=== PATIENT | male | born 1940 | race Caucasian/White ===

== ENCOUNTER → 2020-07-28 | Outpatient (CLI) | payer BC ==
--- NOTE | 2020-07-28 16:06 | CARDNUC ---
[place] [address] CARDIAC NUCLEAR IMAGING REPORT Name: SOHAN RUBY Room: [facility]#: [id number] Admission: 07/28/20 Attend Phys: Matt Carmona Discharge: Date of : 44 Date of Service: 07/28/20 1605 Report #: [id number] THIS REPORT FOR: cc: Maicol Hernandez MD, Rene P. MD Park, Jin S. MD ~ APPROVED REPORT Study performed: 07/28/2020 09:41:12 Exam: Nuclear Stress Test Indication: follow up Patient Location: Out-Patient Stress Tech: Becky Townsend Stress Nurse: Kassy Saldivar RN NM Tech:SALOME Hawkins Ht: 5 ft 8 in Wt: 207 lbs BSA: 2.07 m2 BMI: 31.47 Medical History Medical History: CAD s/p SC, CAD s/p stent, HTN, Valvular heart disease Medications: asa81, carvedilol, lisinopril, procardia, ntg, rosuvastatin Allergies: nkda Cardiac Risk Factors: Age, FHX of CAD, HTN, Hyperlipidemia, Tobacco History (Former) Previous Cardiac Procedures: PCI, Myocardial infarction Exercise History: Indeterminate Meds Held (24 hrs): carvedilol Stress Test Details Stress Test: Pharmacologic stress testing performed using 0.4 mg of regadenoson per 5 mL given IV over 10 seconds. Reason for pharmacologic stress test: physical limitation. HR Resting HR: 70 bpm Max Heart Rate (APMHR): 142 bpm Max HR Achieved: 79 bpm Target HR (85% APMHR): 120 bpm % of APMHR: 55 Recovery HR: [place] [address] CARDIAC NUCLEAR IMAGING REPORT Name: SOHAN RUBY Room: [facility]#: [id number] Admission: 07/28/20 Attend Phys: Matt Carmona Discharge: Date of : 44 Date of Service: 07/28/20 1605 Report #: [id number] Resting BP: 162/78 mmHg Max BP: 167/68 mmHg ECG Resting ECG: Sinus Rhythm, nonspecific ST-T abnormalities Stress ECG: Sinus Rhythm, nonspecific ST-T abnormalities ST Change: Non-ischemic Clinical Reason for Termination: Completed protocol Nurse Comments pt unable to tolerate treadmill in past NM EXAM: Myocardial Perfusion REST/STRESS Imaging Protocol: Rest Tc-99m/Stress Tc-99m 1 day Resting Data Rest SPECT myocardial perfusion imaging was performed in supine position 30 minutes following the intravenous injection of 9.5 mCi of Tc-99m Sestamibi. Time of rest injection: 754 Date: 07/28/2020 The images were gated to evaluate regional wall motion and calculate left ventricular ejection fraction. Administration Route: IV Administration Site: Left Hand Pharmacologic Stress Pharmacologic stress test was performed by injecting Regadenoson 0.4 mg IV push followed by the intravenous injection of 32.4 mCi of Tc-99m Sestamibi. Time of stress injection: 939 Date: 07/28/2020 Administration Route: IV Administration Site: Left Hand Gated Stress SPECT was performed 40 minutes after stress injection. The images were gated to evaluate regional wall motion and calculate left ventricular ejection fraction. Prone imaging was performed. Study Quality Study: Fair Study Data Post stress, [place] [address] CARDIAC NUCLEAR IMAGING REPORT Name: SOHAN RUBY Room: [facility]#: [id number] Admission: 07/28/20 Attend Phys: Matt Carmona Discharge: Date of : 44 Date of Service: 07/28/20 1605 Report #: [id number] 62%.. Perfusion There is a large area of moderately reduced uptake in the entire segment of the inferior wall which is seen on the stress images and improves on the resting images. This area thickens and moves normally and is most consistent with ischemia. Wall Motion Normal left ventricular wall motion. Nuclear Conclusion ECG Findings: negative for ischemia Clinical Findings: non-diagnostic Nuclear Findings: positive for ischemia Exercise Capacity: not assessed Left Ventricular Function: normal There is a large defect in the inferior segment, partially reversible, most consistent with ischemia. There is normal LV systolic function. <ELECTRONICALLY SIGNED> By: Alphonse San MD 07/28/20 1605 04 04 Alphonse San MD /INF
== END ==
LOC: M.NUC 04-06 11:11
PROVIDERS: ATTEND Internal Medicine
DX: R07.9 Chest pain, unspecified (principal)

== ENCOUNTER → 2020-08-23 | Outpatient (CLI) | payer BC ==
[~2020-08-23] VITALS: Ht 175.3 cm; Wt 89.4 kg
[~2020-08-23] MED LIST: ASA81BEC PO; CARVEDILOL12.5 MG PO; CENTRUM SILVER1 EACH PO; COREG6.25 MG PO; CRESTOR20 MG PO; DESYREL150 MG PO; FLOMAX0.4 MG PO; LISINOPRIL40 MG PO; MELATONIN10 M3 PO; NAMENDA 5 MG TAB5 M1 PO; NIFEDIPINE ER30 MG PO; NITROSTAT0.4 M1 SUBLING; VITAMIN D3 COM1 EACH PO
[2020-08-23 09:54] LABS: HEMATOCRIT 31.2 % (42.0-52.0); HEMOGLOBIN 10.7 gm/dL (14.0-18.0); MCH 34.3 pg (26.0-34.0); MCHC 34.4 g/dL (28.0-37.0); MCV 99.7 fL (80.0-100.0); MPV 7.9 fl. (7.2-11.1); RBC 3.13 mil/uL (4.50-6.00); RDW-CV 13.2 % (10.5-14.5); WBC 7.2 thou/uL (4.0-11.0)
[2020-08-23 10:03] LABS: ALBUMIN 3.9 g/dL (3.4-5.0); ALKALINE PHOSPHATASE 70 U/L (46-116); ANION GAP 8 mmol/L (7-16); BUN 24 mg/dL (7-18); CALCIUM 9.4 mg/dL (8.5-10.1); CHLORIDE 103 mmol/L (98-107); CHOLESTEROL 139 mg/dL (<200); CO2 27 mmol/L (21-32); CREATININE 1.3 mg/dL (0.6-1.3); GLUCOSE 94 mg/dL (70-99); HDL CHOLESTEROL 38 mg/dL (>40); LDL CHOLESTEROL 87 mg/dL (<100); POTASSIUM 4.1 mmol/L (3.5-5.1); SGOT 21 U/L (15-37); SGPT 23 U/L (30-65); SODIUM 138 mmol/L (136-145); TC:HDL 3.7 Ratio (Not establshd); TOTAL BILIRUBIN 0.9 mg/dL (<0.1-1.0); TOTAL PROTEIN 9.1 g/dL (6.4-8.2); TRIGLYCERIDE 71 mg/dL (<150); VLDL 14 mg/dL (<40)
[2020-08-23 10:04] LABS: SERUM ASSESSMENT Clear
[2020-08-23 10:25] LABS: PROTIME 10.7 Seconds (9.20-11.50)
[2020-08-23 10:57] VITALS: BP 113/57
[2020-08-23 14:17] VITALS: BP 136/72
[2020-08-23 14:26] VITALS: BP 140/67
--- NOTE | 2020-08-23 14:33 | EKG ---
[place] [address] ELECTROCARDIOGRAM REPORT Name: SOHAN RUBY Room: [facility]#: [id number] Admission: 08/23/20 Attend Phys: Matt Carmona Discharge: Date of : 44 Date of Service: 08/23/20 1040 Report #: [id number] THIS REPORT FOR: //name// [facility] Test Date: 2020-08-23 Test Time: 10:40:30 Pat Name: SOHAN RUBY Department: Room: Gender: Cutter First: : 1940 Requested By: Rodney Chavira Order Number: [id number] Braden MD: Rodney Chavira Measurements Intervals [place] Rate: 41 P: 56 TX: 178 QRS: -25 QRSD: 145 T: -9 QT: 511 QTc: 422 Interpretive Statements Sinus bradycardia Right bundle branch block No previous ECG available for comparison Electronically Signed On 08-23-2020 14:33:42 [employer] WORK[employer] by Rodney Chavira [email or web address] <ELECTRONICALLY SIGNED> By: Rodney Chavira MD, [facility] 08/23/20 1433 1040 1040 Rodney Chavira MD, FACC /EPI
--- NOTE | 2020-08-23 14:45 | CARD ---
[address] [address] CARDIAC CATH REPORT Name: SOHAN RUBY Room: [facility] CLYDE Masterson.#: [id number] Admission: 08/23/20 Attend Phys: Rodney Chavira MD, Discharge: Date of : 44 Report #: [id number] THIS REPORT FOR: cc: aMicol Hernandez MD, Rene P. 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 The right femoral was infiltrated with 2% Lidocaine subcutaneous anesthesia. A 6F [place] sheath was inserted into the right femoral artery. Coronary angiography was performed using coronary diagnostic catheters. The right coronary system was accessed and visualized with a 6F JR4 catheter. The left coronary system was accessed and visualized with a 6F JL4 catheter. The left ventricle was accessed and visualized with a 6F Pig[place] catheter. Left ventricular/Aortic Valve gradient assessed via catheter pullback. Left ventriculogram was performed in [place] projection. [place] [address] CARDIAC CATH REPORT Name: SOHAN RUBY Room: [facility]#: [id number] Admission: 08/23/20 Attend Phys: Rodney Chavira MD, Discharge: Date of : 44 Report #: [id number] was performed . Closure device was deployed with a 6 Fr Mynx. The patient tolerated the procedure well and there were no complications associated with the procedure. There was no hematoma. Intraoperative Conscious Sedation Sedation start time: 12:12 Case end Time: 12:38 Fentanyl 50 mcg Versed 2 mg Fluoro Time: 2.4 minutes Dose: DAP 34375 cGycm2 768 mGy Contrast Type and Amount: Visipaque 100 ml Coronary Angiography The patient's coronary anatomy is right dominant. Diagnostic Cath Left Main 0% narrowing LAD 40% proximal narrowing with 50% mid vessel narrowing Circumflex Nondominant vessel with 40% mid vessel narrowing Right Coronary Large dominant vessel with 20% proximal mid and distal narrowings with widely patent proximal and mid vessel stents Left Ventriculography The left ventricle is normal in size with normal contractility. The left ventricular ejection fraction is estimated to be 60%. Left ventricular wall motion abnormalities are not present. There is no mitral insufficiency. Hemodynamics The aortic pressure is 157/46 mmHg with a mean of 83 mmHg. The left ventricular pressure is 155/1 mmHg with a mean of mmHg. The left ventricular end diastolic pressure is 23 mmHg. There was no gradient across the aortic valve upon pullback. Conclusion 1. Moderate coronary artery disease characterized by the following: A 40% proximal and 50% mid LAD narrowing B 40% narrowing the midportion of the nondominant circumflex C large dominant right coronary artery with 20% [place] [address] CARDIAC CATH REPORT Name: SOHAN RUBY Room: [facility]#: [id number] Admission: 08/23/20 Attend Phys: Rodney Chavira MD, Discharge: Date of : 44 Report #: [id number] distal narrowings with widely patent proximal and mid vessel stents 2. Normal left ventricular systolic function, estimated ejection fraction of 60% 3. Modest systemic systolic hypertension with moderate elevation of left ventricular end-diastolic pressure at rest Recommendations Cardiac Risk Reduction Program Aggressive Medical Therapy Diagnostic Cath Approved by: Rodney Chavira MD Date/Time: 08/23/2020 14:44:26 <ELECTRONICALLY SIGNED> By: Rodney Chavira MD, [facility] 08/23/20 1445 1445 1445Jojuan Chavira MD, FACC /INF
[2020-08-23 15:05] VITALS: BP 124/48
[2020-08-23 16:03] VITALS: BP 128/46
[2020-08-23 17:10] VITALS: BP 135/51
== END | disposition home or self-care (01) ==
LOC: M.CL 08:57
PROVIDERS: ATTEND Internal Medicine
DX: R94.39 Abnormal result of other cardiovascular function study (principal); I25.10 Atherosclerotic heart disease of native coronary artery without angina pectoris; I10 Essential (primary) hypertension; E78.00 Pure hypercholesterolemia, unspecified; I25.2 Old myocardial infarction; Z98.890 Other specified postprocedural states; Z79.899 Other long term (current) drug therapy; Z87.891 Personal history of nicotine dependence; Z79.82 Long term (current) use of aspirin; Z79.01 Long term (current) use of anticoagulants